=== PATIENT | female | born 1955 | race Caucasian/White ===

== ENCOUNTER 2020-04-08 10:21 | Outpatient (CLI) | payer BC, SELFPAY ==
--- NOTE | 2020-04-08 10:30 | XR_ITS ---
WS: [id number] CHEST 2 VIEWS HISTORY: SHORTNESS OF BREATH COMPARISON: 07/29/2011 Lungs: Hyperinflated with emphysema. No pneumonia. Normal vasculature. Cardiac size: Normal. Mediastinum/Aorta: Mild atherosclerosis aorta. Bones: Normal. XR/XR chest 2V* [id number] IMPRESSION: Mild chronic emphysema. No pneumonia.
== END 2020-04-08 10:22 | disposition home or self-care (01) ==
LOC: RADWPI 10:28
PROVIDERS: PCP Nurse Practitioner Family; Visit Provider Nurse Practitioner Family
DX: R06.02 Shortness of breath (principal); J43.9 Emphysema, unspecified
CPT/HCPCS: 71046

== ENCOUNTER → 2020-04-13 08:31 | Outpatient (BNVA) | payer BC, SELFPAY | PROVIDERS: PCP Nurse Practitioner Family; Visit Provider Nurse Practitioner Family | DX: Z11.59 Encounter for screening for other viral diseases (principal) | CPT/HCPCS: 87635 ==

== ENCOUNTER 2020-04-16 12:52 | Outpatient (CLI) | payer BC, SELFPAY ==
--- NOTE | 2020-04-16 | CT_ITS ---
WS: [id number] CT CHEST ANGIOGRAPHY WITH REFORMATS HISTORY: SHORTNESS OF BREATH TECHNIQUE: Contiguous axial images are obtained through the chest during arterial injection of intrav enous contrast. Images are reconstructed to evaluate the pulmonary arteries. MIP imaging also reviewe d. All CT scans at [facility] use at least one of these dose optimization techniques: aut omated exposure control; mA and/or kV adjustment per patient size (includes targeted exams where dose is matched to clinical indication); or iterative reconstruction. CONTRAST: Omnipaque 350; 95 mL IV. DLP: 534.84 mGy.cm COMPARISON: None available. Very good opacification of the pulmonary arteries. No pulmonary emboli. Normal-sized thoracic aorta. Lungs are clear. Heart size is slightly enlarged. Mild enlargement of the LEFT heart chambers. No per icardial pleural effusion. No mediastinal or hilar adenopathy. Visualized thyroid is negative. Moderate size hiatal hernia. No abnormality in the upper abdomen. There are varicosities around the h iatal hernia. Mild RIGHT convex curvature the lumbar spine. Mild anterior wedging of T9. CT/CT angio chest PE protcl [id number] IMPRESSION: 1. No pulmonary embolism. 2. No pneumonia. 3. LEFT heart enlargement. 4. Moderate size hiatal hernia.
--- NOTE | 2020-04-16 13:58 | PFTS_ITS ---
Date of Study:04/16/20 Date of Dictation: 04/20/2020 MECHANICS: Forced vital capacity (FVC) is normal. Forced expiratory volume in one second (FEV1) is normal. FEV1/FVC is normal FLOW VOLUME LOOP: Normal . LUNG VOLUMES: Not measured DIFFUSING CAPACITY FOR CARBON MONOXIDE: Not measured . INTERPRETATION: The spirometry is normal. Please correlate clinically. MTDD
[2020-04-16 14:34] LABS: Blood Urea Nitrogen 15 mg/dL (8-23); Glomerular Filtration Rate 84.8 mL/min (90-130)
[2020-04-16] MEDS: iohexol 350 mg/mL 100 mL Btl IV (15:09)
== END 2020-04-16 12:53 | disposition home or self-care (01) ==
LOC: RT 12:54
PROVIDERS: PCP Nurse Practitioner Family; Visit Provider Nurse Practitioner Family
DX: R06.02 Shortness of breath (principal); I51.7 Cardiomegaly; K44.9 Diaphragmatic hernia without obstruction or gangrene
CPT/HCPCS: 36415; 71275; 82565; 84520; 94010

== ENCOUNTER 2020-07-27 12:42 | Outpatient (CLI) | payer BC, SELFPAY ==
--- NOTE | 2020-07-27 12:45 | USCV_ITS ---
Keily Spence Age: 65 Gender: F : 1955 Exam Date: 07/27/2020 13:22 Ordering Phys: Juan Daniel Chacon M.D ([email or web address]) Technologist: Verónica Lares Exam Location: [facility] [place] Indication: POST COVID SOB BP: 137 / 58 HR: 71 Rhythm: Sinus Technical Quality: Adequate MEASUREMENTS (Male / Female) Normal Values 2D ECHO LV Diastolic Diameter PLAX 4.8 cm 4.2 - 5.9 / 3.9 - 5.3 cm LV Systolic Diameter PLAX 2.4 cm LV Chamber Size 3.2 cm IVS Diastolic Thickness 0.9 cm 0.6 - 1.0 / 0.6 - 0.9 cm IVS Systolic Thickness 1.2 cm LVPW Diastolic Thickness 1.1 cm 0.6 - 1.0 / 0.6 - 0.9 cm LVPW Systolic Thickness 1.3 cm RV Chamber Size 2.5 cm LVOT Diameter 2.0 cm LV Ejection Fraction 2D Teich 81.2 % LV Ejection Fraction MOD 2C 79.4 % LV Ejection Fraction 2C AL 81.0 % LA Diameter 3.7 cm LA Width 3.4 cm LA Height 3.7 cm RA Width 3.5 cm RA Height 4.2 cm Aorta at Sinotubular Diameter 3.0 cm M-MODE LV Diastolic Diameter MM 4.3 cm 4.2 - 5.9 / 3.9 - 5.3 cm LV Systolic Diameter MM 2.0 cm LV Ejection Fraction MM Teich 83.9 % IVS Diastolic Thickness MM 0.9 cm 0.6 - 1.0 / 0.6 - 0.9 cm IVS Systolic Thickness MM 1.3 cm LVPW Diastolic Thickness MM 1.0 cm 0.6 - 1.0 / 0.6 - 0.9 cm LVPW Systolic Thickness MM 1.9 cm Aortic Annulus Diameter 3.3 cm LA Ao Ratio MM 1.4 MV E Point Septal Separation 0.3 cm DOPPLER AV Peak Velocity 147.0 cm/s LVOT Peak Velocity 108.0 cm/s AV Area Cont Eq vti 3.0 cm squared AV Area Cont Eq pk 2.4 cm squared MV Area PHT 3.4 cm squared Mitral E to A Ratio 1.1 MV E' Velocity 62.0 cm/s Mitral E to MV E' Ratio 12.1 Mitral E to LV E' Lateral Ratio 11.0 Mitral E to LV E' Septal Ratio 13.5 TR Peak Velocity 258.5 cm/s TR Peak Gradient 26.7 mmHg TR Mean Velocity 179.0 cm/s TR Mean Gradient 14.8 mmHg TR Velocity Time Integral 78.0 cm TV Peak E Velocity 69.0 cm/s PV Peak Velocity 82.0 cm/s RV Acceleration Time 0.2 s RV Ejection Time 0.3 s RV AcT/ET 0.5 FINDINGS Left Ventricle Normal left ventricular size. LV systolic function is normla with EF of 55-60%.No regional wall motion abnormalities. Normal diastolic filling pattern. Right Ventricle The right ventricle is normal in size and function. Right Atrium The right atrium is normal in size. Left Atrium The left atrium is normal in size. Mitral Valve Structurally normal mitral valve without significant stenosis or prolapse. There is no mitral regurgitation. Aortic Valve Aortic valve is thickened. No significant stenosis. There is no aortic regurgitation. Tricuspid Valve Structurally normal tricuspid valve without significant stenosis. Mild tricuspid regurgitation. RVSP is 25-30mmHg Pulmonic Valve Structurally normal pulmonic valve without significant stenosis. There is no pulmonic regurgitation. Pericardium Normal pericardium without effusion. Aorta Normal ascending aorta dimension. CONCLUSIONS LV systolic function is normal with EF of 55-60% Diastolic function is normal Mild tricuspid regurgitation is noted Compared to prior echocardiogram from 03/26/15, no significant changes are noted Juan Daniel Chacon MD (Electronically Signed) Final Date: 28 Jul 2020 15:03 S
== END 2020-07-27 12:43 | disposition home or self-care (01) ==
LOC: RAD 12:47
PROVIDERS: PCP Nurse Practitioner Family; Visit Provider Internal Medicine
DX: R06.02 Shortness of breath (principal); Z86.16 Personal history of COVID-19; I07.1 Rheumatic tricuspid insufficiency
CPT/HCPCS: 93306

== ENCOUNTER → 2020-07-30 14:52 | Outpatient (BNVA) | payer BC, SELFPAY | PROVIDERS: PCP Nurse Practitioner Family; Visit Provider Internal Medicine | DX: R53.83 Other fatigue (principal) | CPT/HCPCS: 84439; 84443; 85025 ==

== ENCOUNTER → 2020-10-22 15:05 | Outpatient (BNVA) | payer BC, SELFPAY | PROVIDERS: PCP Nurse Practitioner Family; Visit Provider Internal Medicine | DX: R53.83 Other fatigue (principal); R06.02 Shortness of breath; I95.1 Orthostatic hypotension; I34.1 Nonrheumatic mitral (valve) prolapse; Z98.84 Bariatric surgery status; I10 Essential (primary) hypertension; R60.0 Localized edema | CPT/HCPCS: 80048; 83880 ==

== ENCOUNTER 2022-09-08 20:49 | Emergency (ER) | payer BC, SELFPAY ==
[2022-09-08 20:52] VITALS: BP 163/88; PULSE 68; RESP 16; TEMP 36.7; O2SAT 99
--- NOTE | 2022-09-08 21:16 | CTR_ITS ---
PROCEDURE INFORMATION: Exam: CT Head Without Contrast Exam date and time: 09/08/2022 9:32 PM Age: 67 years old Clinical indication: Dizziness; Additional info: Dizzy TECHNIQUE: Imaging protocol: Computed tomography of the head without contrast. Sagittal and coronal reformatted images were created and reviewed. Radiation optimization: All CT scans at this facility use at least one of these dose optimization techniques: automated exposure control; mA and/or kV adjustment per patient size (includes targeted exams where dose is matched to clinical indication); or iterative reconstruction. REPORTING DATA: Count of CT and Cardiac NM exams in prior 12 months: This patient has received 0 known CTs and 0 known cardiac nuclear medicine studies in the 12 months prior to the current study. COMPARISON: No relevant prior studies available. RADIATION DOSE METRICS: Total DLP (mGy-cm): 992.68 FINDINGS: Brain: No acute intracranial hemorrhage. No acute infarct. No intra-axial or extra-axial masses. Craig-white matter differentiation is preserved. No cerebral edema. No extra-axial fluid collections. No midline shift. No evidence for Chiari 1 malformation. Mild cerebral volume loss. Mildly decreased attenuation in the deep white matter, consistent with mild chronic microangiopathic change. Cerebral ventricles: No hydrocephalus. Paranasal sinuses: Visualized paranasal sinuses are clear. Mastoid air cells: Mastoid air cells are clear bilaterally. Orbital cavities: No acute abnormality in the visualized orbits. Bones/joints: No acute fracture. Soft tissues: The extracranial soft tissues are unremarkable. Vasculature: Atherosclerotic changes in the visualized arteries. CT/CT head wo con* [id number] IMPRESSION: 1. No acute abnormality of the brain. 2. Mild chronic white matter microangiopathic change. 3. Incidental/nonacute findings are listed in the report.
--- NOTE | 2022-09-08 21:16 | XRR_ITS ---
PROCEDURE INFORMATION: Exam: XR Chest Exam date and time: 09/08/2022 9:40 PM Age: 67 years old Clinical indication: Other: Dizzy TECHNIQUE: Imaging protocol: Radiologic exam of the chest. Views: 1 view. COMPARISON: CR XR chest 2V* [id number] 01/06/2021 12:56 PM FINDINGS: Lungs: Lungs are clear bilaterally. Pleural spaces: No pleural effusion. No pneumothorax. Heart/Mediastinum: Stable mild enlargement of the cardiac silhouette. Mediastinal contours are unremarkable. Bones/joints: Unremarkable for age. XR/XR chest 1V portable [id number] IMPRESSION: 1. No acute cardiopulmonary process. 2. Incidental/nonacute findings are listed in the report.
--- NOTE | 2022-09-08 21:25 | ECG_ITS ---
[facility] Test Date: 2022-09-08 Pat Name: Keily Spence Department: Room: Gender: Female Academic Affairs Dean: : 1955 Requested By: Rohan Lujan Order Number: [id number] Roel MD: Tete Stewart M.D. Measurements Intervals [place] Rate: 60 P: 38 FL: 139 QRS: 56 QRSD: 125 T: 33 QT: 444 QTc: 445 Interpretive Statements SINUS RHYTHM RIGHT BUNDLE BRANCH BLOCK [120+ ms QRS DURATION, UPRIGHT V1, 40+ ms S IN I/aVL/V4/V5/V6] No previous ECG available for comparison Electronically Signed On 09-09-2022 11:30:59 CDT by Tete Stewart M.D. [id number]
[2022-09-08 21:33] LABS: Basophils % 0.6 %; Eosinophils # 0.2 10^3/uL (0.0-0.8); Eosinophils % 3.5 %; Hematocrit 37.5 % (37.0-47.0); Hemoglobin 11.7 g/dL (11.5-15.3); Lymphocytes # 0.8 10^3/uL (0.8-4.8); Lymphocytes % 12.4 %; Mean Corpuscular HGB Conc 31.2 g/dL (30.0-36.0); Mean Corpuscular Volume 80.1 fl (81-99); Mean Platelet Volume 11.2 fL (7.4-10.4); Monocytes # 0.8 10^3/uL (0.2-0.9); Monocytes % 12.1 %; Neutrophils # 4.52 10^3/uL (1.8-7.7); Neutrophils % 71.2 %; Nucleated Red Blood Cells % 0 %; Platelet Count 305 10^3/cmm (130-400); Red Blood Count 4.68 10^6/uL (4.1-5.3); Red Cell Distribution Width 17.8 % (12.1-15.1); White Blood Count 6.4 10^3/uL (4.0-10.0)
[2022-09-08 21:33] LABS: Glucose Point of Care 93 mg/dL (70-110)
--- NOTE | 2022-09-08 21:43 | ED_ITS ---
HPI - Dizziness General: Chief Complaint: Dizziness Stated Complaint: dizziness, slurred speech Time Seen by Provider: 09/08/22 21:13 Source: patient Mode of arrival: ambulatory Limitations: no limitations History of Present Illness: HPI Narrative: 67-year-old female states she had vertigo in the past states she was driving roughly an hour ago felt very dizzy. States her symptoms have since resolved. She states she had felt like everything was spinning around her she called her daughter daughter for like she may have slurred speech with patient fell like she did not listen to video and I cannot really discern any slurred speech and denies any one-sided weakness or facial droop. Associated symptoms: Reports nausea; Denies chest pain, chills, headache(s) or vomiting Review of Systems 2 Const: Denies: fever(s), chills, body aches or change in appetite Eyes: Denies: blurry vision or eye discomfort ENMT: Denies: throat pain or dental pain Card: Denies: chest pain Resp: Denies: dyspnea GI: Reports: nausea; Denies: abdominal pain, vomiting or diarrhea Musc: Denies: neck pain or back pain Skin/Breast: Denies: rash Neuro: Reports: dizziness; Denies: headache(s) Psych: Denies: depression PFSH ED PFSH: Medical History Hypertension Surgical History H/O gastric bypass Family History Other Hypertension Social History Smoking and tobacco status: never smoked Alcohol intake: never Physical Exam Const: COMMON NORMALS: no acute distress, patient oriented x3 and healthy appearing HENMT: COMMON NORMALS: normocephalic and atraumatic HEAD & SCALP: normocephalic and atraumatic Eye: COMMON NORMALS: Equal, round and reactive pupils present and EOMs intact bilaterally PUPIL: Yes Equal, round and reactive pupils present Neck/C-Spine: COMMON NORMALS: full ROM and supple Chest: COMMONS NORMALS: normal inspection of the chest Resp: COMMON NORMALS: normal respiratory effort Cardio: COMMON NORMALS: regular rate, regular rhythm and No murmurs present (Cardio) RATE: regular rate RHYTHM: regular rhythm GI: INSPECTION: Yes normal to inspection Extremity: COMMON NORMALS: normal to inspection and full ROM Neuro: COMMON NORMALS: patient oriented x3, moves all extremities and no focal motor deficits CRANIAL NERVES: Yes CN normal except as noted SPEECH: speech normal GAIT: Yes Normal gait present MOTOR EXAM: 5/5 motor strength present throughout Psych: COMMON NORMALS: mental status grossly normal, Normal thought process present and cooperative THOUGHT PROCESS: Normal thought process present Skin: COMMON NORMALS: no rashes or lesions noted and no wounds GENERAL SKIN EXAM: no rashes or lesions noted Course Vital Signs: Vital signs: Vital Signs Temperature 98.1 F 09/08/22 20:52 Pulse Rate 65 09/08/22 23:14 Respiratory Rate 13 09/08/22 23:14 Blood Pressure 154/73 09/08/22 23:14 Pulse Oximetry 100 09/08/22 23:14 Oxygen Delivery Me thod Room Air, Nasal C annula 09/08/22 22:39 MDM - Dizziness Medical Decision Making Patient presents here with dizziness is since resolved she has no signs of stroke here. She is able ambulate without any difficulties I did offer admission she states she feels improved would like to go home head CT is normal she is to follow-up PCP and return if worsening. Medical Records I reviewed the patient's medical records. Lab Data I reviewed the patient's lab results. 09/08/22 21:28 09/08/22 21:28 Radiology Impressions Chest X-Ray 09/08/22 21:16 IMPRESSION: 1. No acute cardiopulmonary process. 2. Incidental/nonacute findings are listed in the report. Head CT 09/08/22 21:16 IMPRESSION: 1. No acute abnormality of the brain. 2. Mild chronic white matter microangiopathic change. 3. Incidental/nonacute findings are listed in the report. Laboratory Results WBC 6.4 10^3/uL (4.0-10.0) 09/08/22 21:28 RBC 4.68 10^6/uL (4.1-5.3) 09/08/22 21:28 Hgb 11.7 g/dL (11.5-15.3) 09/08/22 21:28 Hct 37.5 % (37.0-47.0) 09/08/22 21: MCV 80.1 fl (81-99) L 09/08/22 21: MCH 25.0 pg (28.0-34.0) L 09/08/22 21: MCHC 31.2 g/dL (30.0-36.0) 09/08/22 21: RDW 17.8 % (12.1-15.1) H 09/08/22 21: Plt Count 305 10^3/cmm (130-400) 09/08/22 21: MPV 11.2 fL (7.4-10.4) H 09/08/22 21: Neut % (Auto) 71.2 % 09/08/22 21: Lymph % (Auto) 12.4 % 09/08/22 21: [place] % (Auto) 12.1 % 09/08/22 21: Eos % (Auto) 3.5 % 09/08/22 21: Baso % (Auto) 0.6 % 09/08/22 21: Neut # (Auto) 4.52 10^3/uL (1.8-7.7) 09/08/22 21: Lymph # (Auto) 0.8 10^3/uL (0.8-4.8) 09/08/22 21: [place] # (Auto) 0.8 10^3/uL (0.2-0.9) 09/08/22 21: Eos # (Auto) 0.2 10^3/uL (0.0-0.8) 09/08/22 21: Baso # (Auto) 0.0 10^3/uL (0.0-0.1) 09/08/22: Nucleated RBC % (auto) 0 % 09/08/22: Nucleated RBCs # 0.0 /100WBC 09/08/22 21: PT 12.60 SECONDS (12.1-14.9) 09/08/22 21: INR 0.91 (0.8-1.2) 09/08/22 21: Sodium 140 mmol/L (136-145) 09/08/22 21: Potassium 4.3 mmol/L (3.5-5.1) 09/08/22 21:28 Chloride 107 mmol/L (98-107) 09/08/22 21:28 Carbon Dioxide 23 mmol/L (22-29) 09/08/22 21:28 Anion Gap 14.3 (5-19) 09/08/22 21:28 BUN 25 mg/dL (8-23) H 09/08/22 21:28 Creatinine 0.9 mg/dL (0.5-0.9) 09/08/22 21:28 GFR Calculation 62.8 mL/min (90-130) L 09/08/22 21:28 Glucose 92 mg/dL (65-115) 09/08/22 21:28 POC Glucose 93 mg/dL (70-110) 09/08/22 21:25 Calculated Osmolality 294 mOsm/kg (285-295) 09/08/22 21: Calcium 8.5 mg/dL (8.5-10.5) 09/08/22 21:28 Total Bilirubin 0.2 mg/dL (0.15-1.2) 09/08/22 21:28 AST 21 U/L (0-32) 09/08/22 21:28 ALT 11 U/L (0-33) 09/08/22 21:28 Alkaline Phosphatase 111 U/L (35-105) H 09/08/22 21:28 Total Protein 5.9 g/dL (6.6-8.7) L 09/08/22 21:28 Albumin 3.2 g/dL (3.5-5.2) L 09/08/22 21:28 Globulin 2.7 g/dL (1.3-4.6) 09/08/22 21:28 Urine Color Yellow (Yellow) 09/08/22 22:00 Urine Appearance Clear (CLEAR) 09/08/22 22:00 Urine pH 5 (5-7) 09/08/22 22:00 Ur Specific [place] 1.025 (1.005-1.030) 09/08/22 22:00 Urine Protein Neg (Negative) 09/08/22 22:00 Urine Glucose (UA) Norm (Normal) 09/08/22 22:00 Urine Ketones Negative (Negative) 09/08/22 22:00 Urine Blood Neg (Negative) 09/08/22 22:00 Urine Nitrate Negative (Negative) 09/08/22 22:00 Urine Bilirubin 1+ (Negative) H 09/08/22 22:00 Urine Urobilinogen Norm mg/dL (Negative) 09/08/22 22:00 Ur Leukocyte Esterase Negative (Negative) 09/08/22 22:00 Discharge Plan Discharge Patient Disposition: Home Clinical Impression: Dizziness Condition: Stable Prescriptions: New ondansetron 4 mg tablet,disintegrating 4 mg PO Q6H PRN (Reason: nausea and vomiting) Qty: 14 0RF No Action multivitamin Tablet 1 tab PO DAILY tolterodine 2 mg tablet 2 mg PO BID levothyroxine 50 mcg capsule 50 mcg PO DAILY Breo Ellipta 100-25 mcg/dose blister with device 1 inh inhalation DAILY albuterol sulfate 90 mcg/actuation HFA aerosol inhaler 2 puff inhalation Q6H PRN vitamin d3 PO calcium PO b-12 PO amlodipine 10 mg tablet 10 mg PO DAILY Qty: 90 3RF hydrochlorothiazide 25 mg tablet 25 mg PO DAILY Qty: 90 3RF valsartan 320 mg tablet 320 mg PO DAILY Qty: 90 3RF Discharge Orders: Discharge ED (Routine); Ordered 09/08/22 Ordered By: Rohan Lujan Discharge Diet: Advance as tolerated Discharge Activity: Resume usual activity Patient Instructions: Vertigo (ED) Coding Level of Care Code ED Certified Legal Secretary Specialist for Veronique Carballo
[2022-09-08 21:46] LABS: INR 0.91 (0.8-1.2)
[2022-09-08 21:52] LABS: Alanine Aminotransferase 11 U/L (0-33); Albumin Level 3.2 g/dL (3.5-5.2); Alkaline Phosphatase 111 U/L (35-105); Blood Urea Nitrogen 25 mg/dL (8-23); Calcium 8.5 mg/dL (8.5-10.5); Carbon Dioxide 23 mmol/L (22-29); Chloride 107 mmol/L (98-107); Globulin 2.7 g/dL (1.3-4.6); Glomerular Filtration Rate 62.8 mL/min (90-130); Glucose 92 mg/dL (65-115); Osmolality Calculated 294 mOsm/kg (285-295); Sodium 140 mmol/L (136-145); Total Bilirubin 0.2 mg/dL (0.15-1.2); Total Protein 5.9 g/dL (6.6-8.7)
[2022-09-08 22:02] LABS: Anion Gap 14.3 (5-19); Aspartate Amino Transferase 21 U/L (0-32); Potassium 4.3 mmol/L (3.5-5.1)
[2022-09-08] MEDS: meclizine 25 mg tablet 50 MG PO (22:03)
[2022-09-08 22:10] LABS: Add Urine Microscopic? NO; Charge for UA Resulting for Rev
[2022-09-08 22:28] LABS: Bilirubin Urine 1+ (Negative); Blood Urine Neg (Negative); Glucose Urine UA Norm (Normal); Ketones Urine Negative (Negative); Leukocyte Esterase Urine Negative (Negative); Nitrate Urine Negative (Negative); Protein Urine Neg (Negative); Specific Gravity, Urine 1.025 (1.005-1.030); Urine Appearance Clear (CLEAR); Urine Color Yellow (Yellow); Urobilinogen Urine Norm (Negative); pH Urine 5 (5-7)
[2022-09-08 22:39] VITALS: BP 179/73; PULSE 66; RESP 14; O2SAT 100
--- NOTE | 2022-09-08 22:39 | PC.NURSE ---
Requested by MD to walk pt. Pt ambulated slowly, but without assistance approx 20 steps to door and back. Reports feeling nauseated, but no dizziness or other symptoms. MD notified.
[2022-09-08] MEDS: ondansetron 2 mg/ML SDV 2 mL 4 MG IVP (22:58)
[2022-09-08 23:14] VITALS: BP 154/73; PULSE 65; RESP 13; O2SAT 100
== END 2022-09-08 23:15 | disposition home or self-care (01) ==
PROVIDERS: Emergency Provider Emergency Medicine
DX: R42 Dizziness and giddiness (principal); I10 Essential (primary) hypertension
CPT/HCPCS: 36416; 70450; 71045; 80053; 81003; 82962; 85025; 85610; 93005; 96374; 99285; J2405; J8597

== ENCOUNTER 2022-12-01 14:30 | Outpatient (RCR) | payer BC, SELFPAY | END 2022-12-10 23:59 | disposition home or self-care (01) | LOC: SPT 14:30 | PROVIDERS: PCP Family Medicine; Visit Provider Specialist | DX: H81.10 Benign paroxysmal vertigo, unspecified ear (principal) | CPT/HCPCS: 97110; 97161 ==

== ENCOUNTER 2022-12-11 06:00 | Outpatient (RCR) | payer BC, SELFPAY | END 2023-01-10 23:59 | disposition home or self-care (01) | LOC: SPT 06:00 | PROVIDERS: PCP Family Medicine; Visit Provider Specialist | DX: H81.10 Benign paroxysmal vertigo, unspecified ear (principal) | CPT/HCPCS: 97110 ==

== ENCOUNTER 2023-04-17 13:47 | Emergency (ER) | payer BC, SELFPAY ==
[2023-04-17 14:25] VITALS: BP 120/72; PULSE 71; RESP 16; TEMP 36.3; O2SAT 99; BMI 29.3
--- NOTE | 2023-04-17 15:15 | XR_ITS ---
WS: [id number] XR chest 1V portable [id number] REASON FOR EXAM: weakness/low bp FINDINGS: Mild ectasia of the thoracic aorta. Normal heart size. Air and soft tissue density in the mediastinum, presumed hiatal hernia. Calcified granulomas disease in both hemithoraces. No acute/subacute pulmonary parenchymal or pleural abnormality. Mild dextroscoliosis with moderate degenerative spondylosis. IMPRESSION: No acute chest abnormality.
--- NOTE | 2023-04-17 15:16 | ED_ITS ---
Documented by User: TERRENCE Nguyen 04/17/23 16:23 HPI - General Adult 2 General: Chief complaint: Weakness Stated complaint: low bp, left arm numbness Time Seen by Provider: 04/17/23 14:44 Source: patient and other (friend) Mode of arrival: ambulatory Limitations: no limitations History of Present Illness: Patient is a 67-year-old female who presents to the ED today with a main complaint of low blood pressure readings. Patient states she has a longstanding history of orthostatic hypotension. She states for as long as I can remember she will have lightheadedness/dizziness and even passing out episodes if she stands too quickly or if she is seated or standing for long periods of time. Patient states she takes amlodipine, HCTZ, and valsartan for her blood pressure and they have been running really good until over the weekend when she began having blood pressures as low as 80s/40s?50s. Patient states she stopped taking her amlodipine and valsartan. Blood pressures throughout today have been normal (120s/80s). She states over the past several days she has felt shaky and weak. No known recent illnesses. She was reportedly at [facility] urgent care who was concerned about her blood pressure and fatigue. She had also mentioned some right greater than left leg swelling that they were concerned could be a DVT. Patient tells me she has had chronic leg swelling with her right leg always being worse than her left. She states she has had many ultrasounds of the right leg that have always been negative for DVT. She has no complaints of chest pain or shortness of breath. She denies history of CHF. Last echocardiogram was in 2020 with a normal EF. They also reported per their notes that patient has had a 40 pound unintentional weight loss over the past year. Onset (ago): day(s) Relieving factors: none Exacerbating factors: none Associated symptoms: Deny chest pain, confusion, diaphoresis, dyspnea, headache(s), malaise, nausea, rash, palpitations, syncope or vomiting Treatments prior to arrival: none Review of Systems 2 Const: Reports: fatigue; Denies: fever(s), chills, body aches, malaise, night sweats or diaphoresis Eyes: Denies: change in vision, blurry vision, photophobia, floaters or seeing flashes Card: Reports: edema (chronic) and swelling of feet/ankles (chronic); Denies: chest pain, palpitations, irregular heart rhythm, lightheadedness, syncope, pre-syncope, dyspnea on exertion, orthopnea, leg pain with exertion or acrocyanosis Resp: Denies: dyspnea, productive cough, non-productive cough, wheezing, pain on inspiration, hemoptysis or chest congestion GI: Denies: abdominal pain, nausea, vomiting, heartburn or diarrhea : Denies: flank pain, difficulty voiding, dysuria, urinary frequency, urinary urgency or urinary hesitancy Musc: Reports: extremity swelling (chronic bilateral R>L leg edema) and muscle weakness (L hand); Denies: neck pain, back pain, joint pain, joint swelling or joint redness Skin/Breast: Denies: rash Neuro: Reports: dizziness (chronic with positional changes); Denies: headache(s), numbness in extremities, weakness in extremities, sensory changes, lack of coordination, difficulty walking, frequent falls, vertigo, confusion, behavioral changes, Slurred speech present, difficulty communicating thoughts, seizure-like activity or involuntary movements PFSH ED 2 PFSH: Medical History Hypertension Surgical History H/O gastric bypass Family History Other Hypertension Social History Smoking and tobacco/nicotine status: never used tobacco/nicotine Alcohol intake: never Physical Exam 2 Const: COMMON NORMALS: no acute distress, patient oriented x3, no limitations, alert and well nourished GENERAL APPEARANCE: cooperative O RIENTATION/CONSCIOUSNESS: Yes awake, Yes oriented to person, Yes oriented to place and Yes oriented to time HENMT: COMMON NORMALS: normocephalic and atraumatic HEAD & SCALP: normal to inspection, normocephalic and atraumatic FACE & SINUS: normal facial exam and face symmetric Eye: COMMON NORMALS: Equal, round and reactive pupils present and EOMs intact bilaterally GENERAL EYE: appearance normal, both eyes and all related structures and normal light reflex PUPIL: Yes Equal, round and reactive pupils present DIRECT OPHTHALMOSCOPY: Yes normal light reflex Neck/C-Spine: COMMON NORMALS: full ROM, no lymphadenopathy, supple and no meningeal signs Chest: COMMONS NORMALS: normal inspection of the chest Resp: COMMON NORMALS: normal respiratory effort and clear to auscultation bilaterally AUSCULTATION: clear to auscultation bilaterally Cardio: COMMON NORMALS: regular rate and regular rhythm RATE: regular rate RHYTHM: regular rhythm GI: COMMON NORMALS: Normal to inspection, nondistended, normoactive bowel sounds present, Soft to palpation, non-tender, No hepatosplenomegaly present and no masses PALPATION: Yes Soft to palpation and Yes No hepatosplenomegaly present : COMMON NORMALS: Yes no CVA tenderness BLADDER/KIDNEY EXAM: Yes no CVA tenderness Back/Pelvis: COMMON NORMALS: no CVA tenderness and thoracic and lumbar spine normal to inspection Extremity: COMMON NORMALS: normal to inspection, full ROM, capillary refill normal, no joint enlargement and no calf tenderness NARRATIVE EXTREMITY EXAM: bilateral R>L non-pitting edema vs some degree of lymphadenopathy GENERAL: Yes normal exam except as noted Neuro: SHANE COMA SCALE: document GCS findings Shane coma scale eye opening: Spontaneous Shane coma scale verbal response: Orientated Shane coma scale motor response: Obey commands Shane coma scale total score: 15 COMMON NORMALS: patient oriented x3, CN's II-XII intact bilaterally, moves all extremities, no focal motor deficits and no sensory deficits noted S ENSORIUM/ORIENTATION: Yes alert, Yes oriented to person, Yes oriented to place and Yes oriented to time MENINGEAL SIGNS: Yes no meningeal signs SPEECH: s peech normal MOTOR EXAM: Pronator motor function not present, Normal motor muscle tone present throughout and Other motor observations present (decreased manager managing strength on L; no drift; can flex/ext against resistance) Skin: COMMON NORMALS: no rashes or lesions noted GENERAL SKIN EXAM: no rashes or lesions noted Course 2 Vital Signs: Vital signs: Vital Signs Temperature 97.4 F L 04/17/23 14:25 Pulse Rate 74 04/17/23 19:59 Respiratory Rate 16 04/17/23 14:25 Blood Pressure 151/67 04/17/23 19:59 Pulse Oximetry 98 04/17/23 19:59 Oxygen Delivery Me thod Room Air 04/17/23 14:25 [facility] - General Adult Lab Data 04/17/23 15:54 04/17/23 15:54 Laboratory Results WBC 5.77 10^3/uL (3.29-11.43) 04/17/23 15:54 RBC 4.75 10^6/uL (3.85-5.65) 04/17/23 15:54 Hgb 12.30 g/dL (11.27-16.99) 04/17/23 15:54 Hct 38.3 % (36-47) 04/17/23 15:54 MCV 80.6 fl (85-98) L 04/17/23 15:54 MCH 25.9 pg (27-33) L 04/17/23 15:54 MCHC 32.1 g/dL (30-55) 04/17/23 15:54 RDW 18.5 % (12.1-15.1) H 04/17/23 15:54 Plt Count 253 10^3/cmm (157-399) 04/17/23 15:54 MPV 13.3 fL (7.4-10.4) H 04/17/23 15:54 Neut % (Auto) 74.9 % 04/17/23 15:54 Lymph % (Auto) 12.7 % 04/17/23 15:54 [place] % (Auto) 10.4 % 04/17/23 15:54 Eos % (Auto) 1.4 % 04/17/23 15:54 Baso % (Auto) 0.3 % 04/17/23 15:54 Neut # (Auto) 4.32 10^3/uL (1.8-7.7) 04/17/23 15:54 Lymph # (Auto) 0.7 10^3/uL (0.8-4.8) L 04/17/23 15:54 [place] # (Auto) 0.6 10^3/uL (0.2-0.9) 04/17/23 15:54 Eos # (Auto) 0.1 10^3/uL (0.0-0.8) 04/17/23 15:54 Baso # (Auto) 0.0 10^3/uL (0.0-0.1) 04/17/23 15:54 Nucleated RBC % (auto) 0 % 04/17/23 15:54 Nucleated RBCs # 0.0 /100WBC 04/17/23 15:54 Sodium 138 mmol/L (136-145) 04/17/23 15:54 Potassium 3.9 mmol/L (3.5-5.1) 04/17/23 15:54 Chloride 104 mmol/L (98-107) 04/17/23 15:54 Carbon Dioxide 21 mmol/L (22-29) L 04/17/23 15:54 Anion Gap 16.9 (5-19) 04/17/23 15:54 BUN 48 mg/dL (8-23) H 04/17/23 15:54 Creatinine 1.3 mg/dL (0.5-0.9) H 04/17/23 15:54 GFR Calculation 41.1 mL/min (90-130) L 04/17/23 15:54 Glucose 90 mg/dL (65-115) 04/17/23 15:54 Calculated Osmolality 298 mOsm/kg (285-295) H 04/17/23 15:54 Calcium 9.0 mg/dL (8.5-10.5) 04/17/23 15:54 Total Bilirubin 0.3 mg/dL (0.15-1.2) 04/17/23 15:54 AST 22 U/L (0-32) 04/17/23 15:54 ALT 14 U/L (0-33) 04/17/23 15:54 Alkaline Phosphatase 92 U/L (35-105) 04/17/23 15:54 NT-Pro-B Natriuret Pep 384 pg/mL (0-125) H 04/17/23 15:54 Total Protein 6.3 g/dL (6.6-8.7) L 04/17/23 15:54 Albumin 3.4 g/dL (3.5-5.2) L 04/17/23 15:54 Globulin 2.9 g/dL (1.3-4.6) 04/17/23 15:54 TSH 3.40 uIU/mL (0.27-4.20) 04/17/23 15:54 Urine Color Yellow (Yellow) 04/17/23 15:17 Urine Appearance Clear (CLEAR) 04/17/23 15:17 Urine pH 5 (5-7) 04/17/23 15:17 Ur Specific [place] 1.015 (1.005-1.030) 04/17/23 15:17 Urine Protein Neg (Negative) 04/17/23 15:17 Urine Glucose (UA) Norm (Normal) 04/17/23 15:17 Urine Ketones Negative (Negative) 04/17/23 15:17 Urine Blood Neg (Negative) 04/17/23 15:17 Urine Nitrate Negative (Negative) 04/17/23 15:17 Urine Bilirubin Neg (Negative) 04/17/23 15:17 Urine Urobilinogen Norm mg/dL (Negative) 04/17/23 15:17 Ur Leukocyte Esterase Negative (Negative) 04/17/23 15:17 Discharge Plan Discharge Patient Disposition: Home Clinical Impression: Weakness, Fatigue Condition: Stable Prescriptions: No Action multivitamin Tablet 1 tab PO DAILY levothyroxine 50 mcg capsule 50 mcg PO DAILY albuterol sulfate 90 mcg/actuation HFA aerosol inhaler 2 puff inhalation Q6H PRN (Reason: Shortness Of Breath) amlodipine 10 mg tablet 10 mg PO DAILY Qty: 90 3RF valsartan 320 mg tablet 320 mg PO DAILY Qty: 90 3RF Vitamin B-12 50 mcg Tablet 50 mcg PO DAILY Calcium 600 600 mg calcium (1,500 mg) Tablet 600 mg PO DAILY Vitamin D3 50 mcg (2,000 unit) Tablet 50 mcg PO DAILY Myrbetriq 25 mg tablet extended release 24 hr 25 mg PO DAILY hydrochlorothiazide 25 mg tablet 25 mg PO QAM Discharge Orders: Discharge ED (Routine); Ordered 04/17/23 Ordered By: Shaneka Barnes Referrals: Benja Quinn MD [Primary Care Provider] - Discharge Diet: Usual diet Discharge Activity: Increase activity as tolerated Patient Instructions: Weakness (ED), Fatigue (ED) Activity Restrictions/Additional Instructions: Your evaluation here in the emergency department included imaging, EKG, lab work, and urine testing. Your EKG showed no changes in your heart rhythm. We did compare it to previous EKGs you have had in the past and shows you have had no new changes from your typical baseline. Your blood counts indicate no signs of anemia or infection. Your electrolytes are within normal limits however, you had an acute decrease in your kidney function-most likely due to dehydration so we did provide you with IV fluids here in the emergency department. We encourage you to continue pushing clear fluids for the day. This can be beverages like water, Gatorade, propel, juice-just be sure you are watching the sugar content of these drinks. Avoid caffeinated beverages. Your urinalysis revealed no signs of infection or abnormalities. Your thyroid test was within normal limits. Chest x-ray revealed no acute concerns for enlargement of your heart or signs of pulmonary infiltration. Your blood pressure was averaging a systolic reading between 120 and 135. If these are the blood pressure readings you are having by only taking your hydrochlorothiazide I would encourage you to continue only taking the hydrochlorothiazide for the next day or so while you call your primary care doctor to get your follow-up appointment. It is unsafe to have blood pressure readings with a top number between 70 and 80-especially if you are dizzy, lightheaded, or passing out. Continue to take your blood pressure at home multiple times throughout the day to check to make sure blood pressure readings are not getting too high, or too low. Take your: albuterol calcium D3 B12 levothyroxine myrbetriq multivitamin hydrocholorothiazide I recommend holding your amlodipine and valsartan at this time. However, if your systolic blood pressure is over 160 or your diastolic reading is over 100, i would recommend you take your daily dose of amlodipine. But, that is my recommndation at this time. Please call your PCP office in the morning to clarify with them your acute hypotension and see if they have a different recommendation as you will be going out of town at the end of the week and may need to follow their recommended treatment plan until you have a follow up. As just mentioned, we would like you to call your primary care doctor first thing in the morning to make an appointment this week. You can discuss the otherwise negative evaluation here in the emergency department as you may benefit from further evaluation for weakness which would include considerations for autoimmune disorders-given your reports of what sounds like Raynaud's phenomenon, or tick panel-given your reports of tick bites this past summer. If before you are unable to see your primary care doctor you have a return of extremely low blood pressure causing you to be symptomatic with dizziness or passing out you need to be seen in the ER. Begin having chest pains, shortness of breath, fevers, significant swelling of 1 or both of your lower extremities, discoloration of your lower extremities, rash or vomiting you need to return to the ER. Sign Out Sign Out Data: Patient Sign Out occurred on 04/17/23 at 17:07. Patient's care was discussed, and care was transferred from TERRENCE Nguyen to TERRENCE Gómez. Coding Level of Care Code ED Assistant Customer Service Manager for [employer] Documented by User: TERRENCE Gómez 04/18/23 01:02 HPI - General Adult 2 General: Chief complaint: Weakness Stated complaint: low bp, left arm numbness Time Seen by Provider: 04/17/23 14:44 PFS ED 2 PFSH: Medical History Hypertension Surgical History H/O gastric bypass Family History Other Hypertension Social History Smoking and tobacco/nicotine status: never used tobacco/nicotine Alcohol intake: never Physical Exam 2 Neuro: SHANE COMA SCALE: document GCS findings Shane coma scale total score: 15 Course 2 Vital Signs: Vital signs: Vital Signs Temperature 97.4 F L 04/17/23 14:25 Pulse Rate 74 04/17/23 19:59 Respiratory Rate 16 04/17/23 14:25 Blood Pressure 151/67 04/17/23 19:59 Pulse Oximetry 98 04/17/23 19:59 Oxygen Delivery Me thod Room Air 04/17/23 14:25 [facility] - General Adult Medical Decision Making Shaneka Barnes PA-C: Transfer of care from Britt Agosto PA-C at 1700. Britt discussed with me the patient's presenting symptoms today. Much of the patient's lab work is still pending. She indicated treatment based on any acute findings though much of the patient's symptoms seem to be chronic including the lower extremity swelling, fatigue, and syncope. Overall, patient's evaluation today showed no significant changes from her typical baseline. Patient did have a slight decrease in her GFR and she was provided 500 cc bolus of fluids while she was here. Patient indicates that her blood pressure was getting down into the 80s systolic when taking all of her blood pressure medications and states that for a while she has only been taking hydrochlorothiazide. Her blood pressure has been in the 130s here in the ER. I did request the patient notify her primary care doctor in the morning of her evaluation here in the emergency department so they can look over everything and have follow-up with her. Patient indicates that she will be going to stay with her brother starting this weekend and wants outlined instructions of how she should take all of her medication. I explained to her that if her blood pressure systolic was in the 80s and it was causing her to be symptomatic then she needed to hold her blood pressure medications. She seems to be doing well with her hydrochlorothiazide. Explained that she can continue this regimen but she needs to call her doctor first thing in the morning to make them aware. That way they can decide how to change her medication before she leaves this weekend. However, it is also my hope that they would get her in for a follow-up appointment this week as well. I had to go visit the patient multiple times prior to her discharge to make clarifications-even with them in writing on her discharge paperwork. Overall, I reiterated multiple times that the patient needed to call her primary care doctor first thing in the morning to discuss with them her blood pressure medications and to discuss changes to her daily chronic medication regimens. She was given return precautions for the emergency department. Differential Diagnosis DDx: Arrhythmia, DC, hypotension, dehydration, electrolyte imbalance, anemia, abnormal thyroid, CHF Lab Data 04/17/23 15:54 04/17/23 15:54 Laboratory Results WBC 5.77 10^3/uL (3.29-11.43) 04/17/23 15:54 RBC 4.75 10^6/uL (3.85-5.65) 04/17/23 15:54 Hgb 12.30 g/dL (11.27-16.99) 04/17/23 15:54 Hct 38.3 % (36-47) 04/17/23 15:54 MCV 80.6 fl (85-98) L 04/17/23 15:54 MCH 25.9 pg (27-33) L 04/17/23 15:54 MCHC 32.1 g/dL (30-55) 04/17/23 15:54 RDW 18.5 % (12.1-15.1) H 04/17/23 15:54 Plt Count 253 10^3/cmm (157-399) 04/17/23 15:54 MPV 13.3 fL (7.4-10.4) H 04/17/23 15:54 Neut % (Auto) 74.9 % 04/17/23 15:54 Lymph % (Auto) 12.7 % 04/17/23 15:54 [place] % (Auto) 10.4 % 04/17/23 15:54 Eos % (Auto) 1.4 % 04/17/23 15:54 Baso % (Auto) 0.3 % 04/17/23 15:54 Neut # (Auto) 4.32 10^3/uL (1.8-7.7) 04/17/23 15:54 Lymph # (Auto) 0.7 10^3/uL (0.8-4.8) L 04/17/23 15:54 [place] # (Auto) 0.6 10^3/uL (0.2-0.9) 04/17/23 15:54 Eos # (Auto) 0.1 10^3/uL (0.0-0.8) 04/17/23 15:54 Baso # (Auto) 0.0 10^3/uL (0.0-0.1) 04/17/23 15:54 Nucleated RBC % (auto) 0 % 04/17/23 15:54 Nucleated RBCs # 0.0 /100WBC 04/17/23 15:54 Sodium 138 mmol/L (136-145) 04/17/23 15:54 Potassium 3.9 mmol/L (3.5-5.1) 04/17/23 15:54 Chloride 104 mmol/L (98-107) 04/17/23 15:54 Carbon Dioxide 21 mmol/L (22-29) L 04/17/23 15:54 Anion Gap 16.9 (5-19) 04/17/23 15:54 BUN 48 mg/dL (8-23) H 04/17/23 15:54 Creatinine 1.3 mg/dL (0.5-0.9) H 04/17/23 15:54 GFR Calculation 41.1 mL/min (90-130) L 04/17/23 15:54 Glucose 90 mg/dL (65-115) 04/17/23 15:54 Calculated Osmolality 298 mOsm/kg (285-295) H 04/17/23 15:54 Calcium 9.0 mg/dL (8.5-10.5) 04/17/23 15:54 Total Bilirubin 0.3 mg/dL (0.15-1.2) 04/17/23 15:54 AST 22 U/L (0-32) 04/17/23 15:54 ALT 14 U/L (0-33) 04/17/23 15:54 Alkaline Phosphatase 92 U/L (35-105) 04/17/23 15:54 NT-Pro-B Natriuret Pep 384 pg/mL (0-125) H 04/17/23 15:54 Total Protein 6.3 g/dL (6.6-8.7) L 04/17/23 15:54 Albumin 3.4 g/dL (3.5-5.2) L 04/17/23 15:54 Globulin 2.9 g/dL (1.3-4.6) 04/17/23 15:54 TSH 3.40 uIU/mL (0.27-4.20) 04/17/23 15:54 Urine Color Yellow (Yellow) 04/17/23 15:17 Urine Appearance Clear (CLEAR) 04/17/23 15:17 Urine pH 5 (5-7) 04/17/23 15:17 Ur Specific [place] 1.015 (1.005-1.030) 04/17/23 15:17 Urine Protein Neg (Negative) 04/17/23 15:17 Urine Glucose (UA) Norm (Normal) 04/17/23 15:17 Urine Ketones Negative (Negative) 04/17/23 15:17 Urine Blood Neg (Negative) 04/17/23 15:17 Urine Nitrate Negative (Negative) 04/17/23 15:17 Urine Bilirubin Neg (Negative) 04/17/23 15:17 Urine Urobilinogen Norm mg/dL (Negative) 04/17/23 15:17 Ur Leukocyte Esterase Negative (Negative) 04/17/23 15:17 All radiology interpretation(s) finalized by discharge Discharge Plan Discharge Patient Disposition: Home Clinical Impression: Weakness, Fatigue Condition: Stable Prescriptions: No Action multivitamin Tablet 1 tab PO DAILY levothyroxine 50 mcg capsule 50 mcg PO DAILY albuterol sulfate 90 mcg/actuation HFA aerosol inhaler 2 puff inhalation Q6H PRN (Reason: Shortness Of Breath) amlodipine 10 mg tablet 10 mg PO DAILY Qty: 90 3RF valsartan 320 mg tablet 320 mg PO DAILY Qty: 90 3RF Vitamin B-12 50 mcg Tablet 50 mcg PO DAILY Calcium 600 600 mg calcium (1,500 mg) Tablet 600 mg PO DAILY Vitamin D3 50 mcg (2,000 unit) Tablet 50 mcg PO DAILY Myrbetriq 25 mg tablet extended release 24 hr 25 mg PO DAILY hydrochlorothiazide 25 mg tablet 25 mg PO QAM Discharge Orders: Discharge ED (Routine); Ordered 04/17/23 Ordered By: Shaneka Barnes Referrals: Benja Quinn MD [Primary Care Provider] - Discharge Diet: Usual diet Discharge Activity: Increase activity as tolerated Patient Instructions: Weakness (ED), Fatigue (ED) Activity Restrictions/Additional Instructions: Your evaluation here in the emergency department included imaging, EKG, lab work, and urine testing. Your EKG showed no changes in your heart rhythm. We did compare it to previous EKGs you have had in the past and shows you have had no new changes from your typical baseline. Your blood counts indicate no signs of anemia or infection. Your electrolytes are within normal limits however, you had an acute decrease in your kidney function-most likely due to dehydration so we did provide you with IV fluids here in the emergency department. We encourage you to continue pushing clear fluids for the day. This can be beverages like water, Gatorade, propel, juice-just be sure you are watching the sugar content of these drinks. Avoid caffeinated beverages. Your urinalysis revealed no signs of infection or abnormalities. Your thyroid test was within normal limits. Chest x-ray revealed no acute concerns for enlargement of your heart or signs of pulmonary infiltration. Your blood pressure was averaging a systolic reading between 120 and 135. If these are the blood pressure readings you are having by only taking your hydrochlorothiazide I would encourage you to continue only taking the hydrochlorothiazide for the next day or so while you call your primary care doctor to get your follow-up appointment. It is unsafe to have blood pressure readings with a top number between 70 and 80-especially if you are dizzy, lightheaded, or passing out. Continue to take your blood pressure at home multiple times throughout the day to check to make sure blood pressure readings are not getting too high, or too low. Take your: albuterol calcium D3 B12 levothyroxine myrbetriq multivitamin hydrocholorothiazide I recommend holding your amlodipine and valsartan at this time. However, if your systolic blood pressure is over 160 or your diastolic reading is over 100, i would recommend you take your daily dose of amlodipine. But, that is my recommndation at this time. Please call your PCP office in the morning to clarify with them your acute hypotension and see if they have a different recommendation as you will be going out of town at the end of the week and may need to follow their recommended treatment plan until you have a follow up. As just mentioned, we would like you to call your primary care doctor first thing in the morning to make an appointment this week. You can discuss the otherwise negative evaluation here in the emergency department as you may benefit from further evaluation for weakness which would include considerations for autoimmune disorders-given your reports of what sounds like Raynaud's phenomenon, or tick panel-given your reports of tick bites this past summer. If before you are unable to see your primary care doctor you have a return of extremely low blood pressure causing you to be symptomatic with dizziness or passing out you need to be seen in the ER. Begin having chest pains, shortness of breath, fevers, significant swelling of 1 or both of your lower extremities, discoloration of your lower extremities, rash or vomiting you need to return to the ER. Sign Out Sign Out Data: Patient Sign Out occurred on 04/17/23 at 17:07. Patient's care was discussed, and care was transferred from TERRENCE Nguyen to TERRENCE Gómez. Coding Level of Care Code ED Assistant Customer Service Manager for Veronique Carballo
[2023-04-17 15:41] LABS: Add Urine Microscopic? NO; Charge for UA Resulting for Rev
[2023-04-17 15:53] LABS: Bilirubin Urine Neg (Negative); Blood Urine Neg (Negative); Glucose Urine UA Norm (Normal); Ketones Urine Negative (Negative); Leukocyte Esterase Urine Negative (Negative); Nitrate Urine Negative (Negative); Protein Urine Neg (Negative); Specific Gravity, Urine 1.015 (1.005-1.030); Urine Appearance Clear (CLEAR); Urine Color Yellow (Yellow); Urobilinogen Urine Norm (Negative); pH Urine 5 (5-7)
--- NOTE | 2023-04-17 16:16 | PC.PHAR ---
PT STATES TOLTERODINE CHANGED TO MYRBETRIQ 25 MG
--- NOTE | 2023-04-17 16:29 | ECG_ITS ---
[facility] Test Date: 2023-04-17 Pat Name: Keily Spence Department: Room: Gender: Female Improvement Spec: : 1955 Requested By: Britt Agosto Order Number: [id number] Roel MD: Juan Daniel Chacon M.D. Measurements Intervals [place] Rate: 80 P: 58 KS: 141 QRS: 69 QRSD: 129 T: 42 QT: 423 QTc: 490 Interpretive Statements SINUS RHYTHM WITH OCCASIONAL VENTRICULAR PREMATURE COMPLEXES POSSIBLE RIGHT VENTRICULAR CONDUCTION DELAY [RSR (QR) IN V1/V2] MODERATE T-WAVE ABNORMALITY, CONSIDER ANTERIOR ISCHEMIA [-0.1+ mV T-WAVE IN V3/V4] Compared to ECG 09/08/2022 21:25:11 Ventricular premature complex(es) now present T-wave abnormality now present Possible ischemia now present Right bundle-branch block no longer present Electronically Signed On 04-17-2023 23:10:29 VACCINE SPECIALIST by Juan Daniel Chacon M.D. [id number]
--- NOTE | 2023-04-17 16:36 | ECG_ITS ---
[facility] Test Date: 2023-04-17 Pat Name: Keily Spence Department: Room: Gender: Female [employer]: : 1955 Requested By: Britt Agosto Order Number: [id number] Roel MD: Juan Daniel Chacon M.D. Measurements Intervals [place] Rate: 82 P: 72 SD: 144 QRS: 71 QRSD: 120 T: 47 QT: 397 QTc: 465 Interpretive Statements SINUS RHYTHM RIGHT BUNDLE BRANCH BLOCK [120+ ms QRS DURATION, UPRIGHT V1, 40+ ms S IN I/aVL/V4/V5/V6] Compared to ECG 04/17/2023 16:29:46 Right bundle-branch block now present Ventricular premature complex(es) no longer present T-wave abnormality no longer present Possible ischemia no longer present Electronically Signed On 04-17-2023 23:10:14 ENROLLMENT MANAGER by Juan Daniel Chacon M.D. [id number]
[2023-04-17 16:53] LABS: Basophils % 0.3 %; Eosinophils # 0.1 10^3/uL (0.0-0.8); Eosinophils % 1.4 %; Hematocrit 38.3 % (36-47); Lymphocytes # 0.7 10^3/uL (0.8-4.8); Lymphocytes % 12.7 %; Mean Corpuscular HGB Conc 32.1 g/dL (30-55); Mean Corpuscular Hemoglobin 25.9 pg (27-33); Mean Corpuscular Volume 80.6 fl (85-98); Mean Platelet Volume 13.3 fL (7.4-10.4); Monocytes # 0.6 10^3/uL (0.2-0.9); Monocytes % 10.4 %; Neutrophils # 4.32 10^3/uL (1.8-7.7); Neutrophils % 74.9 %; Nucleated Red Blood Cells % 0 %; Platelet Count 253 10^3/cmm (157-399); Red Blood Count 4.75 10^6/uL (3.85-5.65); Red Cell Distribution Width 18.5 % (12.1-15.1); White Blood Count 5.77 10^3/uL (3.29-11.43)
[2023-04-17 16:56] VITALS: BP 134/74; PULSE 89; O2SAT 97
[2023-04-17 17:20] LABS: Alanine Aminotransferase 14 U/L (0-33); Albumin Level 3.4 g/dL (3.5-5.2); Alkaline Phosphatase 92 U/L (35-105); Anion Gap 16.9 (5-19); Aspartate Amino Transferase 22 U/L (0-32); Blood Urea Nitrogen 48 mg/dL (8-23); Carbon Dioxide 21 mmol/L (22-29); Chloride 104 mmol/L (98-107); Globulin 2.9 g/dL (1.3-4.6); Glomerular Filtration Rate 41.1 mL/min (90-130); Glucose 90 mg/dL (65-115); NT Pro B Type Natriuretic Pept 384 pg/mL (0-125); Osmolality Calculated 298 mOsm/kg (285-295); Potassium 3.9 mmol/L (3.5-5.1); Sodium 138 mmol/L (136-145); Total Bilirubin 0.3 mg/dL (0.15-1.2); Total Protein 6.3 g/dL (6.6-8.7)
[2023-04-17] MEDS: sodium chloride 0.9% 500 ML IV (17:44)
[2023-04-17 19:59] VITALS: BP 151/67; PULSE 74; O2SAT 98
== END 2023-04-17 20:00 | disposition home or self-care (01) ==
PROVIDERS: Physician Assistant; Emergency Provider Physician Assistant; PCP Family Medicine
DX: R53.1 Weakness (principal); R53.83 Other fatigue; I10 Essential (primary) hypertension
CPT/HCPCS: 71045; 80053; 81003; 83880; 84443; 85025; 93005; 99285; J7040